=== PATIENT | female | born 1955 | race African-American/Black ===

== ENCOUNTER 2018-08-17 17:09 | Emergency (ER) | payer MEDICARE, MEDICAID ==
[~2018-08-17] VITALS: Ht 160 cm; Wt 158.0 kg
[~2018-08-17 17:09] MED LIST: ALLO100T PO; ASPI-986 PO; LEVO250T2 PO; LORA-16 PO; MONT10TA21 PO; SIMV40TA5 PO; albuterol inhaler INH
[2018-08-17] MEDS ORDERED: KETOROLAC 30MG/ML VIAL IV STA (22:44)
[2018-08-17] MEDS ORDERED: ONDANSETRON HCL 4MG/2ML INJ IV STA (22:44)
[2018-08-17] MEDS ORDERED: FENTANYL CITRATE/PF 50MCG/ML 2ML VIAL IV ONE (23:00)
[2018-08-18 00:23] LABS: BASOPHILS % 0.3 % (0.0-2.0); HEMATOCRIT. 31.3 % (36.0-48.0); HEMOGLOBIN. 9.6 g/dL (12.0-16.0); MEAN CORPUSCULAR HEMOGLOBIN 25.8 pg (28.0-32.0); MEAN CORPUSCULAR VOLUME 84.1 fL (81.0-99.0); MEAN PLATELET VOLUME 9.9 fl (7.4-10.4); MONOCYTES % 14.9 % (2.0-8.0); NEUTROPHILS % 74.8 % (40.0-76.0); PLATELET 284 x1000/uL (130-400); RED BLOOD CELL COUNT 3.72 mill/uL (4.2-5.4); RED CELL DISTRIBUTION WIDTH 15.6 % (11.6-14.6)
[2018-08-18 00:26] LABS: INR 1.1; PARTIAL THROMBOPLASTIN TIME 32.9 sec (23.4-31.0); PROTHROMBIN TIME 11.5 sec (9.1-11.1)
[2018-08-18] MEDS ORDERED: OXYCODONE HCL/ACETAMINOPHEN 5/325MG TABLET PO ONE (01:30)
[2018-08-18 04:17] VITALS: BP 135/61
[2018-09-23] MEDS ORDERED: AMLO5TAB88 PO (07:49)
[2018-09-23] MEDS ORDERED: NITR1PAT5 TOP (07:50)
[2018-09-23] MEDS ORDERED: ATOR20TA PO (07:50)
[2018-09-23] MEDS ORDERED: ASPI-986 PO (07:50)
[2018-09-23] MEDS ORDERED: COR6 MT (13:27)
== END 2018-08-18 04:32 | disposition home or self-care (01) ==
LOC: EDBD → ER 17:09
DX: M10.9 Gout, unspecified (principal); I11.0 Hypertensive heart disease with heart failure; I50.9 Heart failure, unspecified; D64.9 Anemia, unspecified; E78.00 Pure hypercholesterolemia, unspecified; Z79.82 Long term (current) use of aspirin; Z79.899 Other long term (current) drug therapy
CPT/HCPCS: 36415; 73562; 80048; 84550; 85025; 85610; 85730; 96374; 96375; 99284; J1885; J2405; J3010

== ENCOUNTER 2018-09-19 10:22 | Inpatient (IN) | payer MEDICARE, MEDICAID ==
[~2018-09-19] VITALS: Ht 160 cm; Wt 167.9 kg
[2018-09-19] MEDS ORDERED: HYDROCODONE/APAP 7.5/325MG 1 TAB TABLET PO ONE ×2 (12:30→21:45)
[2018-09-19] MEDS ORDERED: LIDOCAINE HCL 2% JELLY 5ML MM ONE (13:15)
[2018-09-19 14:25] LABS: CLARITY URINE CLOUDY (CLEAR); COLOR URINE YELLOW (YELLOW); KETONES URINE NEGATIVE (NEGATIVE); LEUKOCYTE ESTERASE URINE 1+ (NEGATIVE); NITRITE URINE POSITIVE (NEGATIVE); OCCULT BLOOD URINE NEGATIVE (NEGATIVE); PH URINE 5.5 (4.5-8.0); PROTEIN URINE 2+ (NEGATIVE); SPECIFIC GRAVITY URINE 1.016 (1.005-1.030); UROBILINOGEN URINE 0.2 E.U./dL (0.2-1.0)
[2018-09-19 15:08] LABS: BASOPHILS % 0.7 % (0.0-2.0); HEMOGLOBIN. 9.2 g/dL (12.0-16.0); LYMPHOCYTES % 7.8 % (20.0-50.0); MEAN CORPUSCULAR HEMOGLOBIN 25.6 pg (28.0-32.0); MEAN CORPUSCULAR VOLUME 83.2 fL (81.0-99.0); MONOCYTES % 13.1 % (2.0-8.0); NEUTROPHILS % 78.4 % (40.0-76.0); PLATELET 341 x1000/uL (130-400); RED BLOOD CELL COUNT 3.61 mill/uL (4.2-5.4); RED CELL DISTRIBUTION WIDTH 17.8 % (11.6-14.6)
[2018-09-19 15:18] LABS: CHLORIDE 109 mEq/L (98-107)
[2018-09-19] MEDS ORDERED: DOCU-150 PO (15:49)
[2018-09-19] MEDS ORDERED: CEFTRIAXONE 1 G PREMIX 50 ML IV ONE (16:15)
[2018-09-19] MEDS ORDERED: SODIUM CHLORIDE 0.9% 1000ML BAG (SEPSIS BOLUS) IV ONE (16:15)
[2018-09-19] MEDS ORDERED: LEVOFLOXACIN 500MG PREMIX 100 ML IV ONE (16:15)
[2018-09-19] MEDS ORDERED: ACETAMINOPHEN 325MG TABLET PO ONE (18:30)
[2018-09-19] MEDS ORDERED: FUROSEMIDE 40MG TABLET PO ONE (21:00)
[2018-09-19] MEDS ORDERED: AMLODIPINE 5MG TABLET PO ONE (22:00)
[2018-09-19] MEDS ORDERED: MAGNESIUM/ALUMINUM HYDROXIDE/SIMETHICONE 30ML UDC PO PRN (23:00)
[2018-09-19] MEDS ORDERED: ACETAMINOPHEN 325MG TABLET PO PRN (23:00)
[2018-09-19] MEDS ORDERED: NA PHOS,M-B/NA PHOS,DI-BA ENEMA 118ML PR PRN (23:00)
[2018-09-19] MEDS ORDERED: DIPHENHYDRAMINE 50MG/ML VIAL IV PRN (23:00)
[2018-09-19] MEDS ORDERED: ONDANSETRON HCL 4MG/2ML INJ IV PRN (23:00)
[2018-09-19] MEDS ORDERED: CLONIDINE 0.1MG TABLET PO PRN (23:00)
[2018-09-19] MEDS ORDERED: HYDROCODONE/ACETAMINOPHEN 5/325MG TABLET PO PRN (23:00)
[2018-09-19] MEDS ORDERED: ACETAMINOPHEN 650MG SUPP PR PRN (23:00)
[2018-09-19] MEDS ORDERED: IPRATROPIUM/ALBUTEROL 0.5-3(2.5)MG/3ML NEB INH PRN (23:00)
[2018-09-19] MEDS ORDERED: ACETAMINOPHEN 650MG/20.3ML UDC GT PRN (23:00)
[2018-09-20 03:31] VITALS: BP 176/95
[2018-09-20 03:42] VITALS: BP 176/95
[2018-09-20] MEDS: HYDROCODONE/ACETAMINOPHEN 10/325MG TABLET PO PRN ×2 (05:09→21:52)
[2018-09-20] MEDS: SODIUM CHLORIDE 0.9% INJ 3ML FLUSH IVF SCH ×3 (06:05→21:30)
[2018-09-20 08:00] VITALS: BP 155/88
[2018-09-20] MEDS ORDERED: FERR-71 MT (08:45)
[2018-09-20] MEDS ORDERED: FURO40TA5 PO (08:45)
[2018-09-20 10:46] LABS: HEMATOCRIT. 30.6 % (36.0-48.0); HEMOGLOBIN. 9.1 g/dL (12.0-16.0); MEAN CORPUSCULAR HEMOGLOBIN 24.8 pg (28.0-32.0); MEAN CORPUSCULAR VOLUME 83.2 fL (81.0-99.0); MEAN PLATELET VOLUME 9.5 fl (7.4-10.4); PLATELET 335 x1000/uL (130-400); RED BLOOD CELL COUNT 3.68 mill/uL (4.2-5.4); RED CELL DISTRIBUTION WIDTH 17.9 % (11.6-14.6)
[2018-09-20 11:13] LABS: CHLORIDE 109 mEq/L (98-107)
[2018-09-20 11:22] LABS: CREATINE KINASE 43 IU/L (26-192)
[2018-09-20 11:25] LABS: CREATINE KINASE MB FRACTION 1.4 ng/mL (0.5-3.6)
[2018-09-20 12:00] VITALS: BP 170/85
[2018-09-20] MEDS ORDERED: MEDICATION NOT ON FORMULARY EA (Aspirin 325 MG) PO SCH (12:15)
[2018-09-20] MEDS ORDERED: LEVOFLOXACIN 500MG PREMIX 100 ML IV SCH (12:15)
[2018-09-20] MEDS ORDERED: MEDICATION NOT ON FORMULARY EA (Allopurinol 100 MG) PO SCH (12:15)
[2018-09-20] MEDS: COLCHICINE 0.6MG TABLET PO SCH (13:31)
[2018-09-20] MEDS: FUROSEMIDE 40MG/4ML VIAL IVP SCH (13:31)
[2018-09-20] MEDS: ASPIRIN 325MG TABLET PO SCH (13:32)
[2018-09-20] MEDS: ALLOPURINOL 100 MG TABLET PO SCH (13:32)
[2018-09-20] MEDS: NITROGLYCERIN 0.2MG/HR PATCH TOP SCH (15:24)
[2018-09-20 16:00] VITALS: BP 141/79
[2018-09-20 17:07] LABS: CREATINE KINASE MB FRACTION 1.3 ng/mL (0.5-3.6)
[2018-09-20] MEDS: LEVOFLOXACIN 250MG PREMIX 50 ML IV SCH (17:59)
[2018-09-20 20:00] VITALS: BP 131/87
[2018-09-20] MEDS: ALBUTEROL (0.083%) 2.5MG/3ML NEB HHN SCH (20:05)
[2018-09-20] MEDS ORDERED: MEDICATION NOT ON FORMULARY EA (Simvastatin 40 MG) PO SCH (21:00)
[2018-09-20] MEDS: ATORVASTATIN CALCIUM 20MG TABLET PO SCH (21:30)
[2018-09-21] VITALS: BP 152/92
[2018-09-21] MEDS: ALBUTEROL (0.083%) 2.5MG/3ML NEB HHN SCH ×4 (02:10→20:16)
[2018-09-21 04:00] VITALS: BP 147/83
[2018-09-21 07:31] LABS: PLATELET ESTIMATE NORMAL
[2018-09-21 08:00] VITALS: BP 150/88
[2018-09-21] MEDS: ALLOPURINOL 100 MG TABLET PO SCH (09:08)
[2018-09-21] MEDS: FUROSEMIDE 40MG/4ML VIAL IVP SCH (09:08)
[2018-09-21] MEDS: ASPIRIN 325MG TABLET PO SCH (09:08)
[2018-09-21] MEDS: COLCHICINE 0.6MG TABLET PO SCH (09:08)
[2018-09-21] MEDS: DOCUSATE SODIUM 100MG CAPSULE PO PRN (09:08)
[2018-09-21] MEDS: NITROGLYCERIN 0.2MG/HR PATCH TOP SCH (09:09)
[2018-09-21] MEDS: HYDROCODONE/ACETAMINOPHEN 10/325MG TABLET PO PRN (09:09)
[2018-09-21 12:00] VITALS: BP 134/83
[2018-09-21 13:21] LABS: HEMATOCRIT. 30.9 % (36.0-48.0); HEMOGLOBIN. 9.3 g/dL (12.0-16.0); MEAN CORPUSCULAR HEMOGLOBIN 25.3 pg (28.0-32.0); MEAN CORPUSCULAR VOLUME 83.8 fL (81.0-99.0); MEAN PLATELET VOLUME 9.6 fl (7.4-10.4); PLATELET 357 x1000/uL (130-400); RED BLOOD CELL COUNT 3.69 mill/uL (4.2-5.4); RED CELL DISTRIBUTION WIDTH 17.4 % (11.6-14.6)
[2018-09-21 14:27] LABS: PLATELET ESTIMATE NORMAL
[2018-09-21 16:00] VITALS: BP 155/96
[2018-09-21] MEDS: SODIUM CHLORIDE 0.9% INJ 3ML FLUSH IVF SCH ×2 (19:05→21:57)
[2018-09-21] MEDS: LEVOFLOXACIN 250MG PREMIX 50 ML IV SCH (19:05)
[2018-09-21 20:00] VITALS: BP 151/86
[2018-09-21 20:46] LABS: CHLORIDE 106 mEq/L (98-107)
[2018-09-21] MEDS: ATORVASTATIN CALCIUM 20MG TABLET PO SCH (21:56)
[2018-09-22] VITALS: BP 152/90
[2018-09-22] MEDS: ALBUTEROL (0.083%) 2.5MG/3ML NEB HHN SCH ×4 (00:45→21:04)
[2018-09-22 04:00] VITALS: BP 153/86
[2018-09-22] MEDS: SODIUM CHLORIDE 0.9% INJ 3ML FLUSH IVF SCH ×3 (06:30→21:14)
[2018-09-22 08:00] VITALS: BP 149/91
[2018-09-22 08:30] LABS: HEMATOCRIT. 29.3 % (36.0-48.0); HEMOGLOBIN. 8.7 g/dL (12.0-16.0); MEAN CORPUSCULAR HEMOGLOBIN 24.8 pg (28.0-32.0); MEAN CORPUSCULAR VOLUME 83.2 fL (81.0-99.0); MEAN PLATELET VOLUME 9.5 fl (7.4-10.4); PLATELET 363 x1000/uL (130-400); RED BLOOD CELL COUNT 3.52 mill/uL (4.2-5.4); RED CELL DISTRIBUTION WIDTH 17.6 % (11.6-14.6)
[2018-09-22 08:53] LABS: CHLORIDE 105 mEq/L (98-107)
[2018-09-22] MEDS ORDERED: NITROFURANTOIN 100MG M/M CAPSULE PO SCH (09:00)
[2018-09-22] MEDS ORDERED: ALLOPURINOL 100 MG TABLET PO SCH (09:00)
[2018-09-22] MEDS ORDERED: COLCHICINE 0.6MG TABLET PO SCH (09:00)
[2018-09-22] MEDS: ASPIRIN 325MG TABLET PO SCH (09:27)
[2018-09-22] MEDS: FUROSEMIDE 40MG/4ML VIAL IVP SCH (09:27)
[2018-09-22] MEDS: ALLOPURINOL 100 MG TABLET PO SCH (09:28)
[2018-09-22] MEDS: PREDNISONE 20MG TABLET PO SCH (09:29)
[2018-09-22] MEDS: AMLODIPINE 5MG TABLET PO SCH (09:29)
[2018-09-22] MEDS: NITROGLYCERIN 0.2MG/HR PATCH TOP SCH (09:31)
[2018-09-22] MEDS ORDERED: CEFTRIAXONE 1 G PREMIX 50 ML IV SCH (10:00)
[2018-09-22 12:00] VITALS: BP 156/77
[2018-09-22] MEDS: CEFAZOLIN 1000MG PREMIX 50 ML IV SCH ×2 (12:27→21:14)
[2018-09-22 20:00] VITALS: BP 139/77
[2018-09-22] MEDS ORDERED: EPOETIN ALFA 4000UNITS/ML VIAL SUBCUT NR (21:00)
[2018-09-22] MEDS: ATORVASTATIN CALCIUM 20MG TABLET PO SCH (21:14)
[2018-09-22] MEDS: HYDROCODONE/ACETAMINOPHEN 10/325MG TABLET PO PRN (23:02)
[2018-09-23] VITALS (7 sets, daily range): BP systolic 120–138; BP diastolic 54–80
[2018-09-23] MEDS: ALBUTEROL (0.083%) 2.5MG/3ML NEB HHN SCH ×3 (01:14→21:20)
[2018-09-23 04:50] LABS: NUCLEATED RED BLOOD CELLS 1 /100 WBC; PLATELET ESTIMATE NORMAL
[2018-09-23] MEDS: SODIUM CHLORIDE 0.9% INJ 3ML FLUSH IVF SCH ×3 (06:19→23:06)
[2018-09-23 07:18] LABS: HEMOGLOBIN. 9.1 g/dL (12.0-16.0); MEAN CORPUSCULAR HEMOGLOBIN 25.2 pg (28.0-32.0); MEAN PLATELET VOLUME 9.7 fl (7.4-10.4); PLATELET 432 x1000/uL (130-400); RED BLOOD CELL COUNT 3.62 mill/uL (4.2-5.4); RED CELL DISTRIBUTION WIDTH 17.7 % (11.6-14.6)
[2018-09-23 07:44] LABS: PHOSPHORUS 4.5 mg/dL (2.5-4.9)
[2018-09-23] MEDS ORDERED: AMLO5TAB88 PO (07:49)
[2018-09-23] MEDS ORDERED: NITR1PAT5 TOP (07:50)
[2018-09-23] MEDS ORDERED: ASPI-986 PO (07:50)
[2018-09-23] MEDS ORDERED: ATOR20TA PO (07:50)
[2018-09-23] MEDS: FUROSEMIDE 40MG/4ML VIAL IVP SCH (09:17)
[2018-09-23] MEDS: ALLOPURINOL 100 MG TABLET PO SCH (09:17)
[2018-09-23] MEDS: DOCUSATE SODIUM 100MG CAPSULE PO PRN (09:17)
[2018-09-23] MEDS: PREDNISONE 20MG TABLET PO SCH (09:17)
[2018-09-23] MEDS: AMLODIPINE 5MG TABLET PO SCH (09:17)
[2018-09-23] MEDS: ASPIRIN 325MG TABLET PO SCH (09:17)
[2018-09-23] MEDS: CEFAZOLIN 1000MG PREMIX 50 ML IV SCH ×2 (09:18→20:31)
[2018-09-23] MEDS: NITROGLYCERIN 0.2MG/HR PATCH TOP SCH (09:18)
[2018-09-23 11:21] LABS: PLATELET ESTIMATE SLIGHTLY INCREASED
[2018-09-23] MEDS ORDERED: COR6 MT (13:27)
[2018-09-23 17:06] LABS: ANA IFA Negative (.)
[2018-09-23] MEDS: ATORVASTATIN CALCIUM 20MG TABLET PO SCH (20:31)
[2018-09-23] MEDS: CARVEDILOL 6.25 MG TABLET PO SCH (20:31)
[2018-09-23] MEDS ORDERED: DIGOXIN 500MCG/2ML AMP IV NR (21:00)
[2018-09-23] MEDS: HYDROXYCHLOROQUINE SULFATE 200MG TABLET PO SCH (21:00)
[2018-09-23] MEDS: HYDROCODONE/ACETAMINOPHEN 10/325MG TABLET PO PRN (21:58)
[2018-09-23] MEDS ORDERED: DILTIAZEM HCL 30MG TABLET PO NR (23:00)
[2018-09-24] VITALS (7 sets, daily range): BP systolic 109–149; BP diastolic 59–114
[2018-09-24] MEDS: ALBUTEROL (0.083%) 2.5MG/3ML NEB HHN SCH ×4 (02:05→22:07)
[2018-09-24] MEDS: SODIUM CHLORIDE 0.9% INJ 3ML FLUSH IVF SCH ×3 (06:07→21:03)
[2018-09-24] MEDS ORDERED: DIGOXIN 500MCG/2ML AMP IV SCH (08:00)
[2018-09-24] MEDS: ASPIRIN 325MG TABLET PO SCH (08:20)
[2018-09-24] MEDS: ALLOPURINOL 100 MG TABLET PO SCH (08:20)
[2018-09-24] MEDS: FUROSEMIDE 40MG TABLET PO SCH (08:20)
[2018-09-24] MEDS: CARVEDILOL 6.25 MG TABLET PO SCH (08:20)
[2018-09-24] MEDS: PREDNISONE 20MG TABLET PO SCH (08:20)
[2018-09-24] MEDS: HYDROXYCHLOROQUINE SULFATE 200MG TABLET PO SCH ×2 (08:20→17:42)
[2018-09-24] MEDS: NITROGLYCERIN 0.2MG/HR PATCH TOP SCH (08:21)
[2018-09-24] MEDS: CEFAZOLIN 1000MG PREMIX 50 ML IV SCH (09:00)
[2018-09-24 09:01] LABS: BASOPHILS % 0.2 % (0.0-2.0); EOSINOPHILS % 0.4 % (0.0-5.0); HEMATOCRIT. 31.8 % (36.0-48.0); HEMOGLOBIN. 9.6 g/dL (12.0-16.0); LYMPHOCYTES % 8.2 % (20.0-50.0); MEAN CORPUSCULAR HEMOGLOBIN 25.2 pg (28.0-32.0); MEAN CORPUSCULAR VOLUME 83.5 fL (81.0-99.0); MEAN PLATELET VOLUME 9.5 fl (7.4-10.4); MONOCYTES % 8.7 % (2.0-8.0); NEUTROPHILS % 82.5 % (40.0-76.0); PLATELET 541 x1000/uL (130-400); RED BLOOD CELL COUNT 3.81 mill/uL (4.2-5.4); RED CELL DISTRIBUTION WIDTH 17.8 % (11.6-14.6)
[2018-09-24 09:35] LABS: PHOSPHORUS 3.4 mg/dL (2.5-4.9)
[2018-09-24] MEDS: HYDROCODONE/ACETAMINOPHEN 10/325MG TABLET PO PRN (10:01)
[2018-09-24] MEDS ORDERED: APIXABAN 5 MG TABLET PO SCH (17:00)
[2018-09-24] MEDS: SILVER SULFADIAZINE 1% CREAM 25GM TOP SCH (17:43)
[2018-09-24 20:23] LABS: LDL CHOLESTEROL 60 mg/dL (5-100); T4 FREE 1.08 ng/dL (0.76-1.46)
[2018-09-24 20:29] LABS: HDL CHOLESTEROL 39 mg/dL (40-59)
[2018-09-24] MEDS: ATORVASTATIN CALCIUM 20MG TABLET PO SCH (20:58)
[2018-09-24] MEDS: CARVEDILOL 12.5MG TABLET PO SCH (20:58)
[2018-09-24 21:17] LABS: INR 1.1; PARTIAL THROMBOPLASTIN TIME 29.2 sec (23.4-31.0); PROTHROMBIN TIME 11.1 sec (9.1-11.1)
[2018-09-24 21:44] LABS: CREATINE KINASE MB FRACTION 1.9 ng/mL (0.5-3.6)
[2018-09-24] MEDS ORDERED: DIGOXIN 500MCG/2ML AMP IV NR (22:15)
[2018-09-25] VITALS: BP 112/54
[2018-09-25] MEDS: ALBUTEROL (0.083%) 2.5MG/3ML NEB HHN SCH ×3 (02:49→12:26)
[2018-09-25 04:00] VITALS: BP 110/56
[2018-09-25] MEDS: SODIUM CHLORIDE 0.9% INJ 3ML FLUSH IVF SCH ×2 (05:19→14:58)
[2018-09-25 07:14] LABS: BASOPHILS % 0.1 % (0.0-2.0); EOSINOPHILS % 0.3 % (0.0-5.0); HEMATOCRIT. 32.2 % (36.0-48.0); HEMOGLOBIN. 9.5 g/dL (12.0-16.0); INR 1.1; LYMPHOCYTES % 10.1 % (20.0-50.0); MEAN CORPUSCULAR HEMOGLOBIN 24.9 pg (28.0-32.0); MEAN CORPUSCULAR VOLUME 84.9 fL (81.0-99.0); MEAN PLATELET VOLUME 9.5 fl (7.4-10.4); MONOCYTES % 10.9 % (2.0-8.0); NEUTROPHILS % 78.6 % (40.0-76.0); PLATELET 525 x1000/uL (130-400); PROTHROMBIN TIME 11.1 sec (9.1-11.1); RED BLOOD CELL COUNT 3.79 mill/uL (4.2-5.4); RED CELL DISTRIBUTION WIDTH 17.7 % (11.6-14.6)
[2018-09-25 07:30] VITALS: BP 131/73
[2018-09-25 07:45] LABS: CREATINE KINASE MB FRACTION 1.9 ng/mL (0.5-3.6)
[2018-09-25] MEDS ORDERED: WARFARIN SODIUM 2.5MG TABLET PO ONE (09:00)
[2018-09-25] MEDS: HYDROXYCHLOROQUINE SULFATE 200MG TABLET PO SCH (09:04)
[2018-09-25] MEDS: FUROSEMIDE 40MG TABLET PO SCH (09:04)
[2018-09-25] MEDS: NITROGLYCERIN 0.2MG/HR PATCH TOP SCH (09:04)
[2018-09-25] MEDS: CARVEDILOL 12.5MG TABLET PO SCH (09:04)
[2018-09-25] MEDS: ASPIRIN 325MG TABLET PO SCH (09:04)
[2018-09-25] MEDS: ALLOPURINOL 100 MG TABLET PO SCH (09:04)
[2018-09-25] MEDS: SILVER SULFADIAZINE 1% CREAM 25GM TOP SCH (09:04)
[2018-09-25 09:06] LABS: G6PD RBC 3.76 x10E6/uL (3.77-5.28)
[2018-09-25 12:00] VITALS: BP 121/76
[2018-09-25 12:38] VITALS: BP_SYST 114; BP_SYST 122; BP_DIAS 64; BP_DIAS 71
[2018-09-25 16:00] VITALS: BP 114/71
[2018-09-25] MEDS ORDERED: SODIUM POLYSTYRENE SULFONATE 15 G/60 ML BOT PO NR (18:00)
[2018-09-25] MEDS ORDERED: WARFARIN SODIUM 7.5MG TABLET PO NR (18:00)
[2018-09-25] MEDS ORDERED: WARFARIN SODIUM 7.5MG TABLET PO SCH (18:00)
[2018-09-25] MEDS ORDERED: LOSARTAN POTASSIUM 25 MG TABLET PO SCH (18:30)
[2018-09-26] MEDS ORDERED: HYDROXYCHLOROQUINE SULFATE 200MG TABLET PO SCH (09:00)
== END 2018-09-25 19:45 | disposition home health service (06) | DRG 871 ==
LOC: EDBD → ER 10:29 → 8WST 18:23 → EDBEDREQ 18:28 → ENRESERV 09-20 01:43
PROVIDERS: ADMIT Family Medicine; ATTEND Family Medicine
PROC: 0S9D3ZZ Drainage of Left Knee Joint, Percutaneous Approach (ICD-10-PCS; principal; 2018-09-21)
PROC: 3E0U3BZ Introduction of Anesthetic Agent into Joints, Percutaneous Approach (ICD-10-PCS; 2018-09-21)
PROC: 3E0U33Z Introduction of Anti-inflammatory into Joints, Percutaneous Approach (ICD-10-PCS; 2018-09-21)
DX: A41.9 Sepsis, unspecified organism (principal); E43 Unspecified severe protein-calorie malnutrition; J96.91 Respiratory failure, unspecified with hypoxia; I50.33 Acute on chronic diastolic (congestive) heart failure; N39.0 Urinary tract infection, site not specified; I13.0 Hypertensive heart and chronic kidney disease with heart failure and stage 1 through stage 4 chronic kidney disease, or unspecified chronic kidney disease; I42.9 Cardiomyopathy, unspecified; N18.4 Chronic kidney disease, stage 4 (severe); Z68.44 Body mass index [BMI] 60.0-69.9, adult; E66.01 Morbid (severe) obesity due to excess calories; D63.8 Anemia in other chronic diseases classified elsewhere; E11.22 Type 2 diabetes mellitus with diabetic chronic kidney disease; B96.20 Unspecified Escherichia coli [E. coli] as the cause of diseases classified elsewhere; I25.10 Atherosclerotic heart disease of native coronary artery without angina pectoris; R65.20 Severe sepsis without septic shock; J44.9 Chronic obstructive pulmonary disease, unspecified; I27.20 Pulmonary hypertension, unspecified; E78.5 Hyperlipidemia, unspecified; I48.91 Unspecified atrial fibrillation; M10.9 Gout, unspecified; M17.12 Unilateral primary osteoarthritis, left knee; T21.02XA Burn of unspecified degree of abdominal wall, initial encounter; T79.8XXA Other early complications of trauma, initial encounter; X08.8XXA Exposure to other specified smoke, fire and flames, initial encounter; I25.2 Old myocardial infarction; Z82.49 Family history of ischemic heart disease and other diseases of the circulatory system; Z83.3 Family history of diabetes mellitus; Z99.81 Dependence on supplemental oxygen; Z74.01 Bed confinement status; Z79.82 Long term (current) use of aspirin; Z79.899 Other long term (current) drug therapy; Y93.89 Activity, other specified; Y92.89 Other specified places as the place of occurrence of the external cause; Y99.8 Other external cause status
CPT/HCPCS: 36415; 71045; 73560; 76770; 80048; 80061; 82550; 82553; 82955; 83036; 83605; 83735; 83880; 84100; 84439; 84443; 84484; 84550; 85041; 85379; 86200; 86256; 86431; 87077; 87186; 93005; 93306; 93970; 96365; 96367; 97162; 97166; 97530; 97535; 99291; C1893; J0690; J0696; J0885; J1160; J1200; J1940; J1956; J7030; J7512; J7611; J7620

== ENCOUNTER 2018-10-13 00:45 | Inpatient (IN) | payer MEDICARE, OTHER ==
[~2018-10-13] VITALS: Ht 160 cm; Wt 176.2 kg
[~2018-10-13 00:45] MED LIST changes: +COR6 MT; +DOCU-150 PO; +FERR-71 MT; +FURO40TA5 PO; -LEVO250T2 PO; -LORA-16 PO; +NITR1PAT5 TOP
[2018-10-13] MEDS ORDERED: METHYLPREDNISOLONE SOD SUCC 125 MG/2 ML VIAL IV STA (00:52)
[2018-10-13] MEDS ORDERED: IPRATROPIUM BROMIDE (0.02%) 0.5MG/2.5ML NEB HHN STA (00:52)
[2018-10-13] MEDS ORDERED: ALBUTEROL (0.083%) 2.5MG/3ML NEB HHN STA (00:52)
[2018-10-13] MEDS ORDERED: ONDANSETRON HCL 4MG/2ML INJ IV STA (00:52)
[2018-10-13] MEDS ORDERED: FUROSEMIDE 40MG/4ML VIAL IV ONE (01:00)
[2018-10-13] MEDS ORDERED: NITROGLYCERIN OINT 1GM/INCH UDPKT TD ONE (01:00)
[2018-10-13] MEDS ORDERED: MAGNESIUM 2 G PREMIX 50 ML IV ONE (01:00)
[2018-10-13 02:23] LABS: BASOPHILS % 0.6 % (0.0-2.0); EOSINOPHILS % 0.4 % (0.0-5.0); HEMATOCRIT. 27.7 % (36.0-48.0); HEMOGLOBIN. 8.8 g/dL (12.0-16.0); LYMPHOCYTES % 14.3 % (20.0-50.0); MEAN CORPUSCULAR HEMOGLOBIN 26.8 pg (28.0-32.0); MEAN CORPUSCULAR VOLUME 84.6 fL (81.0-99.0); MEAN PLATELET VOLUME 9.4 fl (7.4-10.4); MONOCYTES % 9.2 % (2.0-8.0); NEUTROPHILS % 75.5 % (40.0-76.0); PLATELET 157 x1000/uL (130-400); RED BLOOD CELL COUNT 3.28 mill/uL (4.2-5.4); RED CELL DISTRIBUTION WIDTH 21.1 % (11.6-14.6)
[2018-10-13 02:26] LABS: CHLORIDE 107 mEq/L (98-107)
[2018-10-13 02:27] LABS: INR 1.2; PROTHROMBIN TIME 12.1 sec (9.6-11.0)
[2018-10-13 02:39] LABS: BG BASE EXCESS -4.3 mmol/L (-2.0-2.0); BG BILEVEL POS AIRWAY PRESSURE 15/5; BG DEOXYHEMOGLOBIN 0.5 % (0.0-5.0); BG FRACTION INSPIRED OXYGEN 100; BG HCO3 ACT 20.9 mmol/L (22.0-26.0); BG METHEMOGLOBIN 0.5 % (0.0-1.5); BG OXYGEN SATURATION 99.5 % (92.0-98.5); BG PCO2 38.8 mmHg (35.0-45.0); BG PH 7.349 (7.350-7.450); BG PO2 393.2 mmHg (75.0-100.0); BG SAMPLE SITE LEFT RADIAL; BG TOTAL HEMOGLOBIN 9.4 g/dL (12.0-18.0); BG VENT MODE MASK - BIPAP; BG VENT RATE 16 set
[2018-10-13] MEDS ORDERED: DIGOXIN 500MCG/2ML AMP IV ONE (03:15)
[2018-10-13] MEDS ORDERED: LORAZEPAM 2MG/ML CPJ IV PRN (07:30)
[2018-10-13] MEDS ORDERED: DIPHENHYDRAMINE 50MG/ML VIAL IV PRN (07:30)
[2018-10-13] MEDS ORDERED: DOCUSATE SODIUM 100MG CAPSULE PO PRN (07:30)
[2018-10-13] MEDS ORDERED: HYDROCODONE/ACETAMINOPHEN 10/325MG TABLET PO PRN (07:30)
[2018-10-13] MEDS ORDERED: MORPHINE SULFATE 4 MG/ML CPJ (NOT FOR IM USE) IV PRN (07:30)
[2018-10-13] MEDS ORDERED: GUAIFENESIN 200MG/10ML SUGAR FREE UDC PO PRN (07:30)
[2018-10-13] MEDS ORDERED: IPRATROPIUM/ALBUTEROL 0.5-3(2.5)MG/3ML NEB INH PRN (07:30)
[2018-10-13 09:18] LABS: CREATINE KINASE 25 IU/L (26-192)
[2018-10-13] MEDS ORDERED: HYDRALAZINE 20MG/ML VIAL IV PRN (12:00)
[2018-10-13] MEDS: SODIUM CHLORIDE 0.9% INJ 3ML FLUSH IVF SCH ×2 (13:22→22:22)
[2018-10-13] MEDS: METHYLPREDNISOLONE SOD SUCC 125 MG/2 ML VIAL IV SCH ×3 (13:31→23:05)
[2018-10-13] MEDS: FUROSEMIDE 40MG/4ML VIAL IVP SCH ×2 (13:31→18:01)
[2018-10-13] MEDS: ENOXAPARIN 40MG/0.4ML SYR SUBCUT SCH ×2 (13:32→20:26)
[2018-10-13 13:45] VITALS: BP 137/83
[2018-10-13 14:00] VITALS: BP 125/72
[2018-10-13 16:00] VITALS: BP 101/77
[2018-10-13] MEDS ORDERED: ASPI-1158 MT (16:16)
[2018-10-13] MEDS ORDERED: APIX5TAB MT (16:16)
[2018-10-13] MEDS ORDERED: DOCU100T MT (16:16)
[2018-10-13] MEDS ORDERED: ISOS10TA53 MT (16:16)
[2018-10-13] MEDS ORDERED: DOCUSATE SODIUM MT SCH (17:00)
[2018-10-13] MEDS ORDERED: MEDICATION NOT ON FORMULARY EA (Isosorbide Mononitrate 1 TAB) MT SCH (17:00)
[2018-10-13 17:46] LABS: CREATINE KINASE MB FRACTION 1.1 ng/mL (0.5-3.6)
[2018-10-13 18:00] VITALS: BP 140/67
[2018-10-13] MEDS: DOCUSATE SODIUM 100MG CAPSULE PO SCH (18:00)
[2018-10-13] MEDS ORDERED: DIGOXIN 500MCG/2ML AMP IV SCH (18:00)
[2018-10-13 19:32] LABS: CLARITY URINE CLEAR (CLEAR); COLOR URINE YELLOW (YELLOW); KETONES URINE NEGATIVE (NEGATIVE); LEUKOCYTE ESTERASE URINE 2+ (NEGATIVE); NITRITE URINE NEGATIVE (NEGATIVE); OCCULT BLOOD URINE NEGATIVE (NEGATIVE); PROTEIN URINE NEGATIVE (NEGATIVE); SPECIFIC GRAVITY URINE 1.009 (1.005-1.030); UROBILINOGEN URINE 0.2 E.U./dL (0.2-1.0)
[2018-10-13 20:00] VITALS: BP 156/102
[2018-10-13] MEDS: MONTELUKAST SODIUM 10MG TABLET PO SCH (20:25)
[2018-10-13] MEDS: ATORVASTATIN CALCIUM 20MG TABLET PO SCH (20:25)
[2018-10-13] MEDS: CARVEDILOL 6.25 MG TABLET PO SCH (20:26)
[2018-10-13] MEDS ORDERED: MEDICATION NOT ON FORMULARY EA (Simvastatin 40 MG) PO SCH (21:00)
[2018-10-13 22:00] VITALS: BP 166/85
[2018-10-13] MEDS: ONDANSETRON HCL 4MG/2ML INJ IV PRN (22:21)
[2018-10-14] VITALS (12 sets, daily range): BP systolic 111–158; BP diastolic 69–104
[2018-10-14] MEDS: FUROSEMIDE 40MG/4ML VIAL IVP SCH (06:23)
[2018-10-14] MEDS: METHYLPREDNISOLONE SOD SUCC 125 MG/2 ML VIAL IV SCH ×3 (06:23→17:20)
[2018-10-14] MEDS: SODIUM CHLORIDE 0.9% INJ 3ML FLUSH IVF SCH ×3 (06:24→21:20)
[2018-10-14 06:54] LABS: HEMATOCRIT. 30.4 % (36.0-48.0); HEMOGLOBIN. 9.4 g/dL (12.0-16.0); MEAN CORPUSCULAR HEMOGLOBIN 26.5 pg (28.0-32.0); MEAN PLATELET VOLUME 9.7 fl (7.4-10.4); PLATELET 165 x1000/uL (130-400); RED BLOOD CELL COUNT 3.54 mill/uL (4.2-5.4); RED CELL DISTRIBUTION WIDTH 21.2 % (11.6-14.6)
[2018-10-14 07:31] LABS: CHLORIDE 106 mEq/L (98-107)
[2018-10-14 07:51] LABS: CREATINE KINASE 36 IU/L (26-192); T4 FREE 1.01 ng/dL (0.76-1.46)
[2018-10-14 07:53] LABS: CREATINE KINASE MB FRACTION 2.2 ng/mL (0.5-3.6)
[2018-10-14] MEDS ORDERED: MEDICATION NOT ON FORMULARY EA (Aspirin (Aspirin Ec) 1 TAB) MT SCH (09:00)
[2018-10-14] MEDS ORDERED: MEDICATION NOT ON FORMULARY EA (Furosemide 40 MG) PO SCH (09:00)
[2018-10-14] MEDS ORDERED: MEDICATION NOT ON FORMULARY EA (Apixaban (Eliquis) 1 TAB) MT SCH (09:00)
[2018-10-14] MEDS: ENOXAPARIN 40MG/0.4ML SYR SUBCUT SCH ×2 (09:56→21:18)
[2018-10-14] MEDS: CARVEDILOL 6.25 MG TABLET PO SCH ×2 (09:58→21:18)
[2018-10-14] MEDS: ASPIRIN 81MG EC TABLET PO SCH (09:58)
[2018-10-14] MEDS: DOCUSATE SODIUM 100MG CAPSULE PO SCH ×2 (09:58→17:20)
[2018-10-14] MEDS ORDERED: SODIUM POLYSTYRENE SULFONATE 15 G/60 ML BOT PO NR (10:00)
[2018-10-14 10:07] LABS: PLATELET ESTIMATE NORMAL
[2018-10-14] MEDS: ONDANSETRON HCL 4MG/2ML INJ IV PRN (14:19)
[2018-10-14] MEDS: CLONIDINE 0.1MG TABLET PO PRN (15:53)
[2018-10-14] MEDS: ATORVASTATIN CALCIUM 20MG TABLET PO SCH (21:15)
[2018-10-14] MEDS: MONTELUKAST SODIUM 10MG TABLET PO SCH (21:15)
[2018-10-15] VITALS (16 sets, daily range): BP systolic 108–197; BP diastolic 73–116
[2018-10-15] MEDS: METHYLPREDNISOLONE SOD SUCC 125 MG/2 ML VIAL IV SCH ×4 (06:00→17:55)
[2018-10-15 06:06] LABS: HEMATOCRIT. 32.4 % (36.0-48.0); HEMOGLOBIN. 9.9 g/dL (12.0-16.0); MEAN CORPUSCULAR HEMOGLOBIN 26.4 pg (28.0-32.0); MEAN CORPUSCULAR VOLUME 86.1 fL (81.0-99.0); MEAN PLATELET VOLUME 9.7 fl (7.4-10.4); PLATELET 188 x1000/uL (130-400); RED BLOOD CELL COUNT 3.76 mill/uL (4.2-5.4); RED CELL DISTRIBUTION WIDTH 21.3 % (11.6-14.6)
[2018-10-15] MEDS: SODIUM CHLORIDE 0.9% INJ 3ML FLUSH IVF SCH ×3 (06:26→22:36)
[2018-10-15] MEDS: ONDANSETRON HCL 4MG/2ML INJ IV PRN (08:15)
[2018-10-15] MEDS: ASPIRIN 81MG EC TABLET PO SCH (08:46)
[2018-10-15] MEDS: CLONIDINE 0.1MG TABLET PO PRN (08:46)
[2018-10-15] MEDS: CARVEDILOL 6.25 MG TABLET PO SCH ×2 (08:46→20:43)
[2018-10-15] MEDS: ENOXAPARIN 40MG/0.4ML SYR SUBCUT SCH (08:46)
[2018-10-15] MEDS: FUROSEMIDE 40MG/4ML VIAL IVP SCH (08:46)
[2018-10-15 08:48] LABS: NUCLEATED RED BLOOD CELLS 1 /100 WBC; PLATELET ESTIMATE NORMAL
[2018-10-15] MEDS: DOCUSATE SODIUM 100MG CAPSULE PO SCH ×2 (09:00→17:00)
[2018-10-15] MEDS ORDERED: SODIUM POLYSTYRENE SULFONATE 15 G/60 ML BOT PO SCH (10:00)
[2018-10-15] MEDS: METOCLOPRAMIDE HCL 10MG/2ML VIAL IV SCH ×2 (11:41→17:55)
[2018-10-15] MEDS ORDERED: ELIQUIS XX SCH (19:45)
[2018-10-15] MEDS: ATORVASTATIN CALCIUM 20MG TABLET PO SCH (20:43)
[2018-10-15] MEDS: MONTELUKAST SODIUM 10MG TABLET PO SCH (20:43)
[2018-10-15] MEDS: APIXABAN 5 MG TABLET PO SCH (20:44)
[2018-10-16] VITALS (12 sets, daily range): BP systolic 108–157; BP diastolic 54–95
[2018-10-16] MEDS: METOCLOPRAMIDE HCL 10MG/2ML VIAL IV SCH ×3 (01:08→12:00)
[2018-10-16] MEDS: SODIUM CHLORIDE 0.9% INJ 3ML FLUSH IVF SCH ×3 (06:14→22:20)
[2018-10-16] MEDS: METHYLPREDNISOLONE SOD SUCC 125 MG/2 ML VIAL IV SCH ×5 (06:14→23:31)
[2018-10-16 06:49] LABS: HEMATOCRIT. 32.1 % (36.0-48.0); HEMOGLOBIN. 10.1 g/dL (12.0-16.0); MEAN CORPUSCULAR HEMOGLOBIN 26.7 pg (28.0-32.0); MEAN CORPUSCULAR VOLUME 85.1 fL (81.0-99.0); MEAN PLATELET VOLUME 9.6 fl (7.4-10.4); PLATELET 207 x1000/uL (130-400); RED BLOOD CELL COUNT 3.77 mill/uL (4.2-5.4); RED CELL DISTRIBUTION WIDTH 20.6 % (11.6-14.6)
[2018-10-16 08:15] LABS: PLATELET ESTIMATE NORMAL
[2018-10-16] MEDS: APIXABAN 5 MG TABLET PO SCH ×2 (08:39→18:02)
[2018-10-16] MEDS: DOCUSATE SODIUM 100MG CAPSULE PO SCH ×2 (08:39→18:02)
[2018-10-16] MEDS: CARVEDILOL 6.25 MG TABLET PO SCH ×2 (08:39→20:25)
[2018-10-16] MEDS: ASPIRIN 81MG EC TABLET PO SCH (08:39)
[2018-10-16] MEDS: FUROSEMIDE 40MG/4ML VIAL IVP SCH (08:39)
[2018-10-16] MEDS ORDERED: APIXABAN 2.5 MG TABLET PO SCH (09:00)
[2018-10-16 12:59] LABS: CREATINE KINASE 34 IU/L (26-192)
[2018-10-16] MEDS: CEFTRIAXONE 1 G PREMIX 50 ML IV SCH (15:37)
[2018-10-16] MEDS: ATORVASTATIN CALCIUM 20MG TABLET PO SCH (20:21)
[2018-10-16] MEDS: MONTELUKAST SODIUM 10MG TABLET PO SCH (20:22)
[2018-10-16] MEDS: ISOSORBIDE DINITRATE 20MG TABLET PO SCH (21:18)
[2018-10-17] VITALS (11 sets, daily range): BP systolic 120–161; BP diastolic 67–92
[2018-10-17] MEDS: METHYLPREDNISOLONE SOD SUCC 125 MG/2 ML VIAL IV SCH ×3 (05:33→18:26)
[2018-10-17] MEDS: SODIUM CHLORIDE 0.9% INJ 3ML FLUSH IVF SCH ×3 (05:33→22:12)
[2018-10-17] MEDS: ASPIRIN 81MG EC TABLET PO SCH (09:05)
[2018-10-17] MEDS: APIXABAN 5 MG TABLET PO SCH ×2 (09:05→18:17)
[2018-10-17] MEDS: DOCUSATE SODIUM 100MG CAPSULE PO SCH ×2 (09:05→18:30)
[2018-10-17] MEDS: CARVEDILOL 6.25 MG TABLET PO SCH ×2 (09:06→22:12)
[2018-10-17] MEDS: ISOSORBIDE DINITRATE 20MG TABLET PO SCH ×3 (09:12→18:20)
[2018-10-17 10:45] LABS: HEMATOCRIT. 32.6 % (36.0-48.0); HEMOGLOBIN. 10.1 g/dL (12.0-16.0); MEAN CORPUSCULAR HEMOGLOBIN 26.5 pg (28.0-32.0); MEAN CORPUSCULAR VOLUME 85.1 fL (81.0-99.0); MEAN PLATELET VOLUME 9.7 fl (7.4-10.4); PLATELET 213 x1000/uL (130-400); RED BLOOD CELL COUNT 3.83 mill/uL (4.2-5.4); RED CELL DISTRIBUTION WIDTH 20.8 % (11.6-14.6)
[2018-10-17 11:10] LABS: NUCLEATED RED BLOOD CELLS 1 /100 WBC
[2018-10-17 11:11] LABS: PLATELET ESTIMATE NORMAL
[2018-10-17] MEDS: CEFTRIAXONE 1 G PREMIX 50 ML IV SCH (13:30)
[2018-10-17] MEDS: ATORVASTATIN CALCIUM 20MG TABLET PO SCH (22:11)
[2018-10-17] MEDS: MONTELUKAST SODIUM 10MG TABLET PO SCH (22:12)
[2018-10-18] VITALS (9 sets, daily range): BP systolic 99–169; BP diastolic 53–88
[2018-10-18] MEDS: METHYLPREDNISOLONE SOD SUCC 125 MG/2 ML VIAL IV SCH ×4 (00:22→18:17)
[2018-10-18 06:09] LABS: HEMATOCRIT. 33.5 % (36.0-48.0); HEMOGLOBIN. 10.6 g/dL (12.0-16.0); MEAN CORPUSCULAR HEMOGLOBIN 27.1 pg (28.0-32.0); MEAN CORPUSCULAR VOLUME 85.6 fL (81.0-99.0); PLATELET 225 x1000/uL (130-400); RED BLOOD CELL COUNT 3.91 mill/uL (4.2-5.4); RED CELL DISTRIBUTION WIDTH 20.8 % (11.6-14.6)
[2018-10-18] MEDS: SODIUM CHLORIDE 0.9% INJ 3ML FLUSH IVF SCH ×3 (06:52→22:00)
[2018-10-18] MEDS: APIXABAN 5 MG TABLET PO SCH ×2 (09:04→17:48)
[2018-10-18] MEDS: ISOSORBIDE DINITRATE 20MG TABLET PO SCH ×3 (09:04→17:48)
[2018-10-18] MEDS: ASPIRIN 81MG EC TABLET PO SCH (09:04)
[2018-10-18] MEDS: DOCUSATE SODIUM 100MG CAPSULE PO SCH ×2 (09:04→17:48)
[2018-10-18] MEDS: CARVEDILOL 6.25 MG TABLET PO SCH (09:06)
[2018-10-18 11:00] LABS: NUCLEATED RED BLOOD CELLS 1 /100 WBC
[2018-10-18 11:01] LABS: PLATELET ESTIMATE NORMAL
[2018-10-18] MEDS: CLONIDINE 0.1MG TABLET PO PRN (15:10)
[2018-10-18] MEDS: CEFTRIAXONE 1 G PREMIX 50 ML IV SCH (15:29)
[2018-10-18] MEDS: HYDRALAZINE HCL 50MG TABLET PO SCH ×2 (16:21→22:00)
[2018-10-18] MEDS: MONTELUKAST SODIUM 10MG TABLET PO SCH (21:00)
[2018-10-18] MEDS: CARVEDILOL 12.5MG TABLET PO SCH (21:00)
[2018-10-18] MEDS: ATORVASTATIN CALCIUM 20MG TABLET PO SCH (21:00)
[2018-10-19] VITALS: BP 117/76
[2018-10-19 04:00] VITALS: BP 166/81
[2018-10-19] MEDS: HYDRALAZINE HCL 50MG TABLET PO SCH ×3 (06:00→20:39)
[2018-10-19] MEDS: METHYLPREDNISOLONE SOD SUCC 125 MG/2 ML VIAL IV SCH ×5 (06:00→23:28)
[2018-10-19] MEDS: SODIUM CHLORIDE 0.9% INJ 3ML FLUSH IVF SCH ×3 (06:00→20:39)
[2018-10-19 08:00] VITALS: BP 152/107
[2018-10-19 08:27] LABS: HEMATOCRIT. 34.1 % (36.0-48.0); HEMOGLOBIN. 10.7 g/dL (12.0-16.0); MEAN CORPUSCULAR HEMOGLOBIN 26.3 pg (28.0-32.0); MEAN CORPUSCULAR VOLUME 83.9 fL (81.0-99.0); MEAN PLATELET VOLUME 9.5 fl (7.4-10.4); PLATELET 225 x1000/uL (130-400); RED BLOOD CELL COUNT 4.07 mill/uL (4.2-5.4); RED CELL DISTRIBUTION WIDTH 20.9 % (11.6-14.6)
[2018-10-19 09:05] LABS: PHOSPHORUS 5.6 mg/dL (2.5-4.9)
[2018-10-19 09:22] LABS: CHLORIDE 108 mEq/L (98-107)
[2018-10-19 12:00] VITALS: BP 145/79
[2018-10-19] MEDS: ISOSORBIDE DINITRATE 20MG TABLET PO SCH ×3 (12:08→18:11)
[2018-10-19] MEDS: APIXABAN 5 MG TABLET PO SCH (12:08)
[2018-10-19 12:09] LABS: NUCLEATED RED BLOOD CELLS 1 /100 WBC; PLATELET ESTIMATE NORMAL
[2018-10-19] MEDS: CARVEDILOL 12.5MG TABLET PO SCH ×2 (12:09→20:43)
[2018-10-19] MEDS: ASPIRIN 81MG EC TABLET PO SCH (12:09)
[2018-10-19] MEDS: DOCUSATE SODIUM 100MG CAPSULE PO SCH ×2 (12:14→18:11)
[2018-10-19] MEDS: CEFTRIAXONE 1 G PREMIX 50 ML IV SCH (14:42)
[2018-10-19 16:00] VITALS: BP 120/83
[2018-10-19 20:00] VITALS: BP 119/61
[2018-10-19] MEDS: ATORVASTATIN CALCIUM 20MG TABLET PO SCH (20:39)
[2018-10-19] MEDS: MONTELUKAST SODIUM 10MG TABLET PO SCH (20:39)
[2018-10-19] MEDS: MAGNESIUM/ALUMINUM HYDROXIDE/SIMETHICONE 30ML UDC PO PRN (20:39)
[2018-10-20] VITALS (7 sets, daily range): BP systolic 121–142; BP diastolic 63–85
[2018-10-20] MEDS: ONDANSETRON HCL 4MG/2ML INJ IV PRN ×2 (00:48→20:36)
[2018-10-20] MEDS: SODIUM CHLORIDE 0.9% INJ 3ML FLUSH IVF SCH ×3 (06:41→21:58)
[2018-10-20] MEDS: METHYLPREDNISOLONE SOD SUCC 125 MG/2 ML VIAL IV SCH ×3 (06:41→18:00)
[2018-10-20] MEDS: HYDRALAZINE HCL 50MG TABLET PO SCH ×3 (06:42→21:57)
[2018-10-20 07:20] LABS: HEMOGLOBIN. 10.4 g/dL (12.0-16.0); MEAN CORPUSCULAR HEMOGLOBIN 26.7 pg (28.0-32.0); MEAN CORPUSCULAR VOLUME 84.6 fL (81.0-99.0); MEAN PLATELET VOLUME 9.4 fl (7.4-10.4); PLATELET 209 x1000/uL (130-400); RED CELL DISTRIBUTION WIDTH 21.4 % (11.6-14.6)
[2018-10-20] MEDS: ASPIRIN 81MG EC TABLET PO SCH (07:36)
[2018-10-20 07:43] LABS: PHOSPHORUS 3.9 mg/dL (2.5-4.9)
[2018-10-20 08:01] LABS: HEPATITIS B SURFACE AB 4.6 mIU/mL
[2018-10-20 08:12] LABS: HEPATITIS B SURFACE ANTIGEN NEGATIVE
[2018-10-20 08:22] LABS: PLATELET ESTIMATE NORMAL
[2018-10-20] MEDS: ISOSORBIDE DINITRATE 20MG TABLET PO SCH ×4 (09:00→17:00)
[2018-10-20] MEDS: DOCUSATE SODIUM 100MG CAPSULE PO SCH ×3 (09:00→17:00)
[2018-10-20] MEDS: CARVEDILOL 12.5MG TABLET PO SCH ×2 (09:00→21:13)
[2018-10-20] MEDS: ACETAMINOPHEN 325MG TABLET PO PRN (10:29)
[2018-10-20] MEDS: CEFTRIAXONE 1 G PREMIX 50 ML IV SCH (15:46)
[2018-10-20] MEDS: APIXABAN 5 MG TABLET PO SCH (17:00)
[2018-10-20] MEDS: MONTELUKAST SODIUM 10MG TABLET PO SCH (21:13)
[2018-10-20] MEDS: ATORVASTATIN CALCIUM 20MG TABLET PO SCH (21:13)
[2018-10-21] VITALS (22 sets, daily range): BP systolic 126–170; BP diastolic 61–115
[2018-10-21] MEDS: METHYLPREDNISOLONE SOD SUCC 125 MG/2 ML VIAL IV SCH ×4 (00:13→17:30)
[2018-10-21] MEDS: HYDRALAZINE HCL 50MG TABLET PO SCH ×3 (05:25→22:52)
[2018-10-21] MEDS: SODIUM CHLORIDE 0.9% INJ 3ML FLUSH IVF SCH ×3 (05:26→22:54)
[2018-10-21 06:15] LABS: HIV SCREEN 4G Non Reactive (Non Reactive)
[2018-10-21 06:41] LABS: MEAN CORPUSCULAR HEMOGLOBIN 26.6 pg (28.0-32.0); MEAN PLATELET VOLUME 9.9 fl (7.4-10.4); PLATELET 229 x1000/uL (130-400); RED BLOOD CELL COUNT 4.12 mill/uL (4.2-5.4); RED CELL DISTRIBUTION WIDTH 21.2 % (11.6-14.6)
[2018-10-21 07:54] LABS: PLATELET ESTIMATE NORMAL
[2018-10-21 08:42] LABS: PHOSPHORUS 4.4 mg/dL (2.5-4.9)
[2018-10-21] MEDS ORDERED: LIDOCAINE HCL 1% 20ML VIAL (Pyxis) INJ ONE ×2 (08:47→08:50)
[2018-10-21] MEDS ORDERED: HEPARIN 1000 UNITS/ML 10ML ONE (08:47)
[2018-10-21] MEDS ORDERED: SODIUM BICARBONATE 4% (2.4MEQ) 5ML VIAL IV ONE ×2 (08:47→08:50)
[2018-10-21] MEDS: ISOSORBIDE DINITRATE 20MG TABLET PO SCH ×3 (09:00→17:37)
[2018-10-21] MEDS: ASPIRIN 81MG EC TABLET PO SCH (09:00)
[2018-10-21] MEDS: CARVEDILOL 12.5MG TABLET PO SCH ×2 (09:00→22:42)
[2018-10-21] MEDS: APIXABAN 5 MG TABLET PO SCH ×2 (09:00→17:37)
[2018-10-21] MEDS: DOCUSATE SODIUM 100MG CAPSULE PO SCH ×2 (09:00→17:37)
[2018-10-21] MEDS ORDERED: FENTANYL CITRATE/PF 50MCG/ML 2ML VIAL ONE (10:50)
[2018-10-21] MEDS ORDERED: ONDANSETRON HCL 4MG/2ML INJ ONE (10:57)
[2018-10-21] MEDS ORDERED: ONDANSETRON HCL 4MG/2ML INJ IV ONE (11:15)
[2018-10-21] MEDS ORDERED: FENTANYL CITRATE/PF 50MCG/ML 2ML VIAL IV ONE (11:15)
[2018-10-21] MEDS: CEFTRIAXONE 1 G PREMIX 50 ML IV SCH (14:30)
[2018-10-21] MEDS: ACETAMINOPHEN 325MG TABLET PO PRN (19:12)
[2018-10-21] MEDS: MONTELUKAST SODIUM 10MG TABLET PO SCH (22:41)
[2018-10-21] MEDS: ATORVASTATIN CALCIUM 20MG TABLET PO SCH (22:42)
[2018-10-21] MEDS: MAGNESIUM/ALUMINUM HYDROXIDE/SIMETHICONE 30ML UDC PO PRN (23:05)
[2018-10-22] VITALS: BP 105/5
[2018-10-22 04:00] VITALS: BP 124/71
[2018-10-22] MEDS: METHYLPREDNISOLONE SOD SUCC 125 MG/2 ML VIAL IV SCH ×5 (05:48→23:24)
[2018-10-22] MEDS: HYDRALAZINE HCL 50MG TABLET PO SCH ×3 (05:48→21:23)
[2018-10-22] MEDS: SODIUM CHLORIDE 0.9% INJ 3ML FLUSH IVF SCH ×3 (05:49→21:23)
[2018-10-22 07:35] LABS: HEMATOCRIT. 33.5 % (36.0-48.0); HEMOGLOBIN. 10.2 g/dL (12.0-16.0); MEAN CORPUSCULAR HEMOGLOBIN 26.1 pg (28.0-32.0); MEAN CORPUSCULAR VOLUME 85.8 fL (81.0-99.0); MEAN PLATELET VOLUME 10.3 fl (7.4-10.4); PLATELET 210 x1000/uL (130-400); RED CELL DISTRIBUTION WIDTH 21.6 % (11.6-14.6)
[2018-10-22 07:58] LABS: PHOSPHORUS 4.1 mg/dL (2.5-4.9)
[2018-10-22 08:00] VITALS: BP 124/108
[2018-10-22] MEDS: ONDANSETRON HCL 4MG/2ML INJ IV PRN (09:02)
[2018-10-22] MEDS: DOCUSATE SODIUM 100MG CAPSULE PO SCH ×2 (09:02→18:25)
[2018-10-22] MEDS: ISOSORBIDE DINITRATE 20MG TABLET PO SCH ×3 (09:04→18:24)
[2018-10-22] MEDS: ASPIRIN 81MG EC TABLET PO SCH (09:04)
[2018-10-22] MEDS: CARVEDILOL 12.5MG TABLET PO SCH ×2 (09:05→21:23)
[2018-10-22] MEDS: APIXABAN 5 MG TABLET PO SCH ×2 (09:06→18:25)
[2018-10-22 10:20] LABS: PLATELET ESTIMATE NORMAL
[2018-10-22 12:00] VITALS: BP 108/43
[2018-10-22] MEDS: CEFTRIAXONE 1 G PREMIX 50 ML IV SCH (15:48)
[2018-10-22 16:00] VITALS: BP 134/78
[2018-10-22] MEDS: HYDROCODONE/ACETAMINOPHEN 5/325MG TABLET PO PRN (16:19)
[2018-10-22 20:00] VITALS: BP 123/77
[2018-10-22] MEDS ORDERED: DOCU-138 MT (20:01)
[2018-10-22] MEDS ORDERED: ISOS20TA8 MT (20:03)
[2018-10-22] MEDS ORDERED: ATOR20TA65 MT (20:06)
[2018-10-22] MEDS ORDERED: HYDR-4135 MT (20:06)
[2018-10-22] MEDS ORDERED: RANI150C12 MT (20:06)
[2018-10-22] MEDS ORDERED: POTA8CAP10 MT (20:06)
[2018-10-22] MEDS: MONTELUKAST SODIUM 10MG TABLET PO SCH (21:23)
[2018-10-22] MEDS: ATORVASTATIN CALCIUM 20MG TABLET PO SCH (21:23)
[2018-10-23] VITALS: BP_SYST 126; BP_DIAS 56; BP_DIAS 86
[2018-10-23 04:00] VITALS: BP 103/48
[2018-10-23] MEDS: HYDRALAZINE HCL 50MG TABLET PO SCH ×2 (06:00→14:00)
[2018-10-23 06:01] LABS: HEMATOCRIT. 31.1 % (36.0-48.0); HEMOGLOBIN. 9.6 g/dL (12.0-16.0); MEAN CORPUSCULAR HEMOGLOBIN 26.7 pg (28.0-32.0); MEAN CORPUSCULAR VOLUME 86.4 fL (81.0-99.0); MEAN PLATELET VOLUME 9.9 fl (7.4-10.4); PLATELET 196 x1000/uL (130-400); RED CELL DISTRIBUTION WIDTH 21.3 % (11.6-14.6)
[2018-10-23] MEDS: METHYLPREDNISOLONE SOD SUCC 125 MG/2 ML VIAL IV SCH ×3 (06:26→17:37)
[2018-10-23] MEDS: SODIUM CHLORIDE 0.9% INJ 3ML FLUSH IVF SCH ×3 (06:26→21:49)
[2018-10-23 06:29] LABS: PHOSPHORUS 4.5 mg/dL (2.5-4.9)
[2018-10-23 08:00] VITALS: BP 102/46
[2018-10-23 08:15] LABS: PLATELET ESTIMATE NORMAL
[2018-10-23] MEDS: ISOSORBIDE DINITRATE 20MG TABLET PO SCH ×3 (09:00→17:00)
[2018-10-23] MEDS: CARVEDILOL 12.5MG TABLET PO SCH ×2 (09:00→21:47)
[2018-10-23] MEDS: ONDANSETRON HCL 4MG/2ML INJ IV PRN (10:13)
[2018-10-23] MEDS: DOCUSATE SODIUM 100MG CAPSULE PO SCH ×2 (10:59→17:00)
[2018-10-23] MEDS: ASPIRIN 81MG EC TABLET PO SCH (10:59)
[2018-10-23] MEDS: APIXABAN 5 MG TABLET PO SCH ×2 (10:59→17:00)
[2018-10-23 12:00] VITALS: BP 119/71
[2018-10-23] MEDS: CEFTRIAXONE 1 G PREMIX 50 ML IV SCH (14:18)
[2018-10-23 16:00] VITALS: BP 143/62
[2018-10-23] MEDS ORDERED: BISACODYL 5MG TABLET PO NR (19:00)
[2018-10-23] MEDS ORDERED: MAGNESIUM HYDROXIDE 400MG/5ML 30ML UDC PO PRN (19:00)
[2018-10-23] MEDS ORDERED: MAGNESIUM HYDROXIDE 400MG/5ML 30ML UDC PO NR (19:00)
[2018-10-23 20:00] VITALS: BP 121/55
[2018-10-23] MEDS: MONTELUKAST SODIUM 10MG TABLET PO SCH (21:46)
[2018-10-23] MEDS: ATORVASTATIN CALCIUM 20MG TABLET PO SCH (21:48)
[2018-10-24] VITALS: BP 158/78
[2018-10-24] MEDS: METHYLPREDNISOLONE SOD SUCC 125 MG/2 ML VIAL IV SCH ×2 (00:23→06:32)
[2018-10-24] MEDS: HYDRALAZINE HCL 50MG TABLET PO SCH ×2 (00:25→06:00)
[2018-10-24] MEDS: ONDANSETRON HCL 4MG/2ML INJ IV PRN ×2 (01:27→09:27)
[2018-10-24 04:00] VITALS: BP 113/72
[2018-10-24] MEDS: SODIUM CHLORIDE 0.9% INJ 3ML FLUSH IVF SCH (06:00)
[2018-10-24] MEDS ORDERED: BISACODYL 5MG TABLET PO SCH (06:15)
[2018-10-24 06:19] LABS: HEMOGLOBIN. 10.1 g/dL (12.0-16.0); MEAN CORPUSCULAR HEMOGLOBIN 26.2 pg (28.0-32.0); MEAN CORPUSCULAR VOLUME 85.5 fL (81.0-99.0); MEAN PLATELET VOLUME 9.5 fl (7.4-10.4); PLATELET 202 x1000/uL (130-400); RED BLOOD CELL COUNT 3.86 mill/uL (4.2-5.4); RED CELL DISTRIBUTION WIDTH 21.5 % (11.6-14.6)
[2018-10-24 06:28] LABS: PHOSPHORUS 4.1 mg/dL (2.5-4.9)
[2018-10-24 08:00] VITALS: BP 129/57
[2018-10-24] MEDS: CARVEDILOL 12.5MG TABLET PO SCH (09:00)
[2018-10-24] MEDS: DOCUSATE SODIUM 100MG CAPSULE PO SCH (09:00)
[2018-10-24] MEDS: ASPIRIN 81MG EC TABLET PO SCH (09:00)
[2018-10-24] MEDS: ISOSORBIDE DINITRATE 20MG TABLET PO SCH (09:00)
[2018-10-24] MEDS ORDERED: PREDNISONE 20MG TABLET PO SCH (09:15)
[2018-10-24 10:25] LABS: PLATELET ESTIMATE NORMAL
[2018-10-24] MEDS: MAGNESIUM/ALUMINUM HYDROXIDE/SIMETHICONE 30ML UDC PO PRN (11:19)
[2018-10-24] MEDS: HYDROCODONE/ACETAMINOPHEN 5/325MG TABLET PO PRN (11:19)
[2018-10-24 12:00] VITALS: BP 112/68
== END 2018-10-24 16:43 | DRG 673 ==
LOC: ER 00:45 → EDBD 00:45 → EDBEDREQSVC 02:42 → EDBEDREQ 02:42 → EDBEDREQTM 02:42 → ENRESERV 10:33 → EDBD 11:40 → 5EST 11:40 → 7WST 10-21 10:30
PROVIDERS: ADMIT Internal Medicine; ATTEND Internal Medicine
PROC: 5A1D70Z Performance of Urinary Filtration, Intermittent, Less than 6 Hours Per Day (ICD-10-PCS; 2018-10-17)
PROC: 5A1D70Z Performance of Urinary Filtration, Intermittent, Less than 6 Hours Per Day (ICD-10-PCS; 2018-10-18)
PROC: 5A1D70Z Performance of Urinary Filtration, Intermittent, Less than 6 Hours Per Day (ICD-10-PCS; 2018-10-19)
PROC: 5A1D70Z Performance of Urinary Filtration, Intermittent, Less than 6 Hours Per Day (ICD-10-PCS; 2018-10-20)
PROC: 0JH63XZ Insertion of Tunneled Vascular Access Device into Chest Subcutaneous Tissue and Fascia, Percutaneous Approach (ICD-10-PCS; 2018-10-21)
PROC: 02H633Z Insertion of Infusion Device into Right Atrium, Percutaneous Approach (ICD-10-PCS; 2018-10-21)
PROC: B2141ZZ Fluoroscopy of Right Heart using Low Osmolar Contrast (ICD-10-PCS; 2018-10-21)
PROC: 02H633Z Insertion of Infusion Device into Right Atrium, Percutaneous Approach (ICD-10-PCS; 2018-10-21)
PROC: B2141ZZ Fluoroscopy of Right Heart using Low Osmolar Contrast (ICD-10-PCS; 2018-10-21)
PROC: 05HM33Z Insertion of Infusion Device into Right Internal Jugular Vein, Percutaneous Approach (ICD-10-PCS; 2018-10-21)
PROC: B543ZZA Ultrasonography of Right Jugular Veins, Guidance (ICD-10-PCS; 2018-10-21)
PROC: 5A1D70Z Performance of Urinary Filtration, Intermittent, Less than 6 Hours Per Day (ICD-10-PCS; principal; 2018-10-22)
DX: N17.9 Acute kidney failure, unspecified (principal); J69.0 Pneumonitis due to inhalation of food and vomit; J96.01 Acute respiratory failure with hypoxia; E46 Unspecified protein-calorie malnutrition; I42.9 Cardiomyopathy, unspecified; I13.0 Hypertensive heart and chronic kidney disease with heart failure and stage 1 through stage 4 chronic kidney disease, or unspecified chronic kidney disease; N39.0 Urinary tract infection, site not specified; E87.2 Acidosis; Z68.44 Body mass index [BMI] 60.0-69.9, adult; N18.4 Chronic kidney disease, stage 4 (severe); E66.01 Morbid (severe) obesity due to excess calories; I50.9 Heart failure, unspecified; I27.20 Pulmonary hypertension, unspecified; B96.20 Unspecified Escherichia coli [E. coli] as the cause of diseases classified elsewhere; I25.10 Atherosclerotic heart disease of native coronary artery without angina pectoris; D64.9 Anemia, unspecified; I44.7 Left bundle-branch block, unspecified; M19.90 Unspecified osteoarthritis, unspecified site; I48.91 Unspecified atrial fibrillation; J44.9 Chronic obstructive pulmonary disease, unspecified; E78.00 Pure hypercholesterolemia, unspecified; Z79.01 Long term (current) use of anticoagulants; Z79.82 Long term (current) use of aspirin; Z79.899 Other long term (current) drug therapy; I25.2 Old myocardial infarction
CPT/HCPCS: 36415; 36556; 36558; 36569; 36573; 36589; 36600; 71045; 76770; 76937; 77001; 80048; 80061; 82375; 82550; 82553; 82575; 82805; 82962; 83036; 83735; 83880; 84100; 84132; 84439; 84443; 84484; 86705; 86706; 86803; 87077; 87186; 87340; 87389; 93005; 93970; 96365; 96366; 96375; 97110; 97162; 97166; 97530; 99152; 99153; 99291; C1725; C1750; C1752; J0360; J0696; J1160; J1644; J1650; J1940; J2060; J2270; J2405; J2765; J2930; J3010; J3475; J3490; J7040; J7050; J7611; G0500